=== PATIENT | female | born 1930 | race Caucasian/White ===

== ENCOUNTER → 2017-02-06 | Outpatient (CLI) | payer MEDICARE, BC ==
--- NOTE | 2017-02-06 11:21 | RADRPT ---
PROCEDURE: XR Pelvis. CLINICAL INDICATION: Hip pain TECHNIQUE: Single AP view performed. 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 There is no evidence of loosening of the prosthesis. No hard santiago failure is identified. There is moderate left hip osteoarthrosis. This is associated with joint space narrowing, subchondra l sclerosis and osteophytosis. There is diffuse osteopenia No fractures or osseous lesions are gregg ntified. The soft tissues are unremarkable. IMPRESSION: Right total hip replacement. Moderate left hip osteoarthrosis. Diffuse osteopenia RPTAT: HGDB .Akbar Bucio MD, MD Date Time Electronically viewed and signed by .Akbar Bucio MD, on 02/06/2017 11:21 .B/
--- NOTE | 2017-02-06 11:35 | RADRPT ---
PROCEDURE: XR left femur. CLINICAL INDICATION: Pain TECHNIQUE: AP view of the mid and lower left femur performed. COMPARISON: No prior studies are available for comparison. FINDINGS: There is a left total knee replacement. There is normal mineralization, architecture and alignment. No fracture or osseous lesion is identif ied. The soft tissues are unremarkable. IMPRESSION: Left total knee replacement Otherwise unremarkable examination RPTAT: HGDB .Akbar Bucio MD, MD Date Time Electronically viewed and signed by .Akbar Bucio MD, on 02/06/2017 11:35 .B/
== END | disposition home or self-care (01) ==
LOC: HKI 10:10
PROVIDERS: ATTEND Orthopaedic Surgery
DX: T84.51XD Infection and inflammatory reaction due to internal right hip prosthesis, subsequent encounter (principal); T84.090D Other mechanical complication of internal right hip prosthesis, subsequent encounter; Y83.8 Other surgical procedures as the cause of abnormal reaction of the patient, or of later complication, without mention of misadventure at the time of the procedure; Z96.641 Presence of right artificial hip joint
CPT/HCPCS: 72170; 73551

== ENCOUNTER → 2017-03-06 | Outpatient (CLI) | payer MEDICARE, BC | END | disposition home or self-care (01) | LOC: HKI 09:34 | PROVIDERS: ATTEND Orthopaedic Surgery | DX: T84.51XD Infection and inflammatory reaction due to internal right hip prosthesis, subsequent encounter (principal); T84.090D Other mechanical complication of internal right hip prosthesis, subsequent encounter; Y83.8 Other surgical procedures as the cause of abnormal reaction of the patient, or of later complication, without mention of misadventure at the time of the procedure; Z96.641 Presence of right artificial hip joint ==

== ENCOUNTER → 2017-05-01 | Outpatient (CLI) | payer MEDICARE, BC ==
--- NOTE | 2017-05-01 13:49 | RADRPT ---
PROCEDURE: XR Right hip and pelvis. CLINICAL INDICATION: Right hip pain. Pelvic pain. Postop. TECHNIQUE: Three views. Frontal pelvis. Frontal and lateral right hip. COMPARISON: No prior studies are available for comparison. FINDINGS: There is no fracture or dislocation. The soft tissues are normal. There is a right hip arthroplasty with the acetabular component having been removed. There is uncha nged. The left hip is grossly normal. There is no lytic or blastic lesion. There are degenerative changes of the lower lumbar spine. IMPRESSION: 1. Postoperative changes of the right hip with removal of the acetabular component as seen previous ly. 2. Grossly normal appearance of the left hip. 3. Degenerative changes of the lower lumbar spine. RPTAT: QQ .Long Toussaint MD, Date Time Electronically viewed and signed by .Long Toussaint MD, on 05/01/2017 13:48 .R/
--- NOTE | 2017-05-01 13:55 | RADRPT ---
PROCEDURE: Right knee radiographs. CLINICAL INDICATION: Right knee pain. Postop. TECHNIQUE: Three views. Weight bearing. Frontal, lateral, and oblique view. COMPARISON: No prior studies are available for comparison. FINDINGS: There is no fracture or dislocation. The soft tissues are normal. There is a total right knee arthroplasty which appears satisfactory. There is no lytic or blastic lesion. There is no joint effusion. IMPRESSION: 1. Satisfactory postoperative appearance of the right knee. RPTAT: QQ .Long Toussaint MD, Date Time Electronically viewed and signed by .Long Toussaint MD, on 05/01/2017 13:55 .R/
== END | disposition home or self-care (01) ==
LOC: HKI 09:00
PROVIDERS: ATTEND Orthopaedic Surgery
DX: T84.51XD Infection and inflammatory reaction due to internal right hip prosthesis, subsequent encounter (principal); M62.81 Muscle weakness (generalized); Y83.8 Other surgical procedures as the cause of abnormal reaction of the patient, or of later complication, without mention of misadventure at the time of the procedure
CPT/HCPCS: 73502

== ENCOUNTER 2018-02-11 10:06 | Day surgery (SDC) | END 2018-02-11 16:10 | disposition other institution (70) ==